=== PATIENT | female | born 1970 | race Caucasian/White ===

== ENCOUNTER → 2016-07-07 | Outpatient (CLI) | payer BC ==
--- NOTE | 2016-07-08 11:23 | MM ---
Reason for exam: screening (asymptomatic). Last mammogram was performed 1 year and 1 month ago. History: Patient history of other cancer. Took hormonal contraceptives for 2 years. Physical Findings: A clinical breast exam by your physician is recommended on an annual basis and results should be correlated with mammographic findings. MG Screening Mammo w CAD Bilateral CC and MLO view(s) were taken. Prior study comparison: June 19, 2015, bilateral MG screening mammo w CAD. May 07, 2014, bilateral MG screening mammo w CAD. The breast tissue is heterogeneously dense. This may lower the sensitivity of mammography. No significant changes when compared with prior studies. ASSESSMENT: Negative, BI-RAD 1 RECOMMENDATION: Routine screening mammogram of both breasts in 1 year.
== END | disposition home or self-care (01) ==
LOC: RADMAMWWP 07:08
PROVIDERS: ATTEND Obstetrics & Gynecology
DX: Z12.31 Encounter for screening mammogram for malignant neoplasm of breast (principal)

== ENCOUNTER → 2018-03-08 | Outpatient (CLI) | payer BC ==
[2018-03-08 07:44] LABS: INR 1.1 (<1.2); Prothrombin Time 10.5 sec (9.0-12.0)
== END ==
LOC: LABWHC1 07:01
PROVIDERS: ATTEND Family Medicine
DX: T14.8XXA Other injury of unspecified body region, initial encounter (principal)
CPT/HCPCS: 36415; 82180; 85610

== ENCOUNTER → 2018-03-09 | Outpatient (CLI) | payer BC ==
--- NOTE | 2018-03-10 13:55 | MM ---
Reason for exam: screening (asymptomatic). Last mammogram was performed 1 year and 8 months ago. History: Patient history of other cancer. Took hormonal contraceptives for 2 years. Physical Findings: A clinical breast exam by your physician is recommended on an annual basis and results should be correlated with mammographic findings. MG 3D Screening Mammo W/Cad Bilateral CC and MLO view(s) were taken. Prior study comparison: July 07, 2016, bilateral MG screening mammo w CAD. June 19, 2015, bilateral MG screening mammo w CAD. The breast tissue is heterogeneously dense. This may lower the sensitivity of mammography. No suspicious abnormality. No significant changes when compared with prior studies. ASSESSMENT: Negative, BI-RAD 1 RECOMMENDATION: Routine screening mammogram of both breasts in 1 year.
== END | disposition home or self-care (01) ==
LOC: RADMAMWWP 10:18
PROVIDERS: ATTEND Obstetrics & Gynecology
DX: Z12.31 Encounter for screening mammogram for malignant neoplasm of breast (principal)
CPT/HCPCS: 77063; 77067

== ENCOUNTER → 2019-04-09 | Outpatient (CLI) | payer BC ==
--- NOTE | 2019-04-09 10:20 | MM ---
Reason for exam: screening (asymptomatic). Last mammogram was performed 1 year and 1 month ago. History: Patient history of other cancer. Took hormonal contraceptives for 2 years. Physical Findings: A clinical breast exam by your physician is recommended on an annual basis and results should be correlated with mammographic findings. MG 3D Screening Mammo W/Cad Bilateral CC and MLO view(s) were taken. Prior study comparison: March 09, 2018, bilateral MG 3d screening mammo w/cad. July 07, 2016, bilateral MG screening mammo w CAD. The breast tissue is heterogeneously dense. This may lower the sensitivity of mammography. Benign appearing calcifications in the left breast. No suspicious abnormality. No significant changes when compared with prior studies. ASSESSMENT: Benign, BI-RAD 2 RECOMMENDATION: Routine screening mammogram of both breasts in 1 year.
== END | disposition home or self-care (01) ==
LOC: RADMAMWWP 07:09
PROVIDERS: ATTEND Obstetrics & Gynecology
DX: Z12.31 Encounter for screening mammogram for malignant neoplasm of breast (principal)
CPT/HCPCS: 77063; 77067

== ENCOUNTER → 2020-05-05 | Outpatient (CLI) | payer BC ==
[2020-05-05 09:11] LABS: Basophils % (A) 0 %; Eosinophils # (A) 0.3 k/uL (0-0.7); Eosinophils % (A) 4 %; HCT 38.9 % (34.0-46.0); HGB 13.2 gm/dL (11.4-16.0); Lymphocytes # (A) 2.1 k/uL (1.0-4.8); Lymphocytes % (A) 29 %; MCH 27.5 pg (25.0-35.0); MCHC 33.9 g/dL (31.0-37.0); MCV 81.2 fL (80.0-100.0); Mean Platelet Volume 7.6; Monocytes # (A) 0.4 k/uL (0-1.0); Monocytes % (A) 6 %; Neutrophils # (A) 4.5 k/uL (1.3-7.7); Neutrophils % (A) 60 %; Platelet Count 195 k/uL (150-450); RBC 4.79 m/uL (3.80-5.40); RDW 13.6 % (11.5-15.5); WBC 7.5 k/uL (3.8-10.6)
[2020-05-05 09:27] LABS: African American GFR (CKD) >90 (>60 ml/min/1.73 sqM); Anion Gap 6 mmol/L; Blood Urea Nitrogen 21 mg/dL (7-17); Carbon Dioxide 30 mmol/L (22-30); Chloride 103 mmol/L (98-107); Glucose 170 mg/dL (74-99); Non-African American GFR(CKD) >90 (>60 ml/min/1.73 sqM); Potassium 4.2 mmol/L (3.5-5.1); Sodium 139 mmol/L (137-145)
== END | disposition home or self-care (01) ==
LOC: LABPAT 07:54
PROVIDERS: ATTEND Obstetrics & Gynecology
DX: Z01.818 Encounter for other preprocedural examination (principal); D25.9 Leiomyoma of uterus, unspecified; E11.9 Type 2 diabetes mellitus without complications
CPT/HCPCS: 36415; 80051; 82565; 82947; 84520; 85025; 87086

== ENCOUNTER 2020-05-12 09:54 | Observation (INO) | payer BC ==
[2020-05-09 13:17] VITALS: BMI 37.1
[~2020-05-12 09:54] MED LIST: LACTATED RINGERS 1,000 ML IV SCH
[2020-05-12] MEDS ORDERED: LIDOCAINE 1% (10MG/ML) FOR IV START INTRADERMA ONE (10:37)
[2020-05-12] MEDS ORDERED: ONDANSETRON 4 MG/2 ML VIAL ONE (10:41)
[2020-05-12 10:42] LABS: Glucose,Whole Blood 140 mg/dL (75-99)
[2020-05-12] MEDS ORDERED: ONDANSETRON 4 MG/2 ML VIAL IVP ONE (10:55)
[2020-05-12] MEDS ORDERED: DEXAMETHASONE SOD PHOSPHATE 4 MG/ML 1 ML VIAL IVP ONE (10:56)
[2020-05-12] MEDS ORDERED: MIDAZOLAM 2 MG/2 ML VIAL ONE (12:55)
[2020-05-12] MEDS ORDERED: fentaNYL (PF) 50 MCG/ML 2 ML AMP ONE (12:55)
[2020-05-12] MEDS ORDERED: PROPOFOL 10 MG/ML 20 ML VIAL IV ONE (12:55)
[2020-05-12] MEDS ORDERED: VASOPRESSIN 20 UNIT/ML 1 ML VIAL SQ ONE (13:24)
[2020-05-12] MEDS ORDERED: BACITRACIN ZINC 500 UNIT/GM OINT 28.4 GM TUBE TOPICAL ONE ×2 (13:47→14:06)
[2020-05-12] MEDS ORDERED: LACTATED RINGERS 1,000 ML IV ONE (14:11)
[2020-05-12] MEDS ORDERED: IBUPROFEN 600 MG TAB PO PRN (14:23)
[2020-05-12] MEDS ORDERED: ONDANSETRON 4 MG/2 ML VIAL IVP PRN (14:23)
[2020-05-12] MEDS ORDERED: SIMETHICONE 80 MG CHEWABLE PO PRN (14:23)
[2020-05-12] MEDS ORDERED: diphenhydrAMINE 50 MG/ML 1 ML VIAL IVP PRN (14:23)
[2020-05-12] MEDS ORDERED: ZOLPIDEM 5 MG TAB PO PRN (14:23)
[2020-05-12] MEDS ORDERED: METOCLOPRAMIDE 5 MG/ML 2 ML VIAL IVP PRN (14:23)
--- NOTE | 2020-05-12 14:23 | P.OP ---
Date of Procedure: 05/12/20 Preoperative Diagnosis: Fibroid uterus with suspicious findings sonographically Postoperative Diagnosis: Same, normal-appearing ovaries bilaterally Procedure(s) Performed: Vaginal hysterectomy Anesthesia: spinal Surgeon: Rhonda Cruz Plumbing Drafter #1: Brooke Fox Estimated Blood Loss (ml): 50 IV fluids (ml): 600 Urine output (ml): 300 Pathology: other (Cervix and uterus) Condition: stable Disposition: PACU Operative Findings: Normal-appearing ovaries bilaterally. Description of Procedure: Patient is brought to the operating suite where a spinal is administered without difficulty. She's placed in the dorsal lithotomy position. The cervix, vagina, perineal bodies are all prepped and draped in the usual sterile fashion. Urine hCG is negative. Antibiotics are given. The appropriate timeout was performed to assure proper patient and procedural identification. The bladder is drained for approximately 300 mL of clear yellow urine. The weighted speculum was placed into the vagina. The anterior bladder blade is placed in the anterior lip of the cervix is grasped at 12:00 with a double-tooth tenaculum. The cervix is injected circumferentially with a dilute Pitressin solution. A scalpel is used to incise the mucosa circumferentially with a V positioning at 6:00. Sponge rolled finger is used to sweep the mucosa from the underlying fascial plane. The peritoneum is entered at 6:00 and suture tied with 2-0 Vicryl held with a hemostat. The large billed speculum is then placed into the peritoneal cavity. At all times care is taken to keep the bladder mucosa swept well from the operative field to avoid bladder and/or ureteral injury. The right uterosacral cardinal ligament is identified, clamped cut and suture ligated. It is held with a hemostat laterally. The same procedure is carried out contralaterally. Uterine vasculature is next identified, clamped cut and suture ligated. 2 additional pedicles are taken superior to the vessels. Peritoneum was then entered at 12:00 with a Metzenbaum scissor. The uterus is "walked out" posteriorly. Chele clamps are used across the final pedicles. The cervix and uterus are removed and sent to pathology for evaluation. The pedicles are tied with 0 Vicryl suture, flashed, and retied for excellent hemostasis. Both ovaries appear normal to inspection and were therefore left in situ per the patient's wishes. Hemostasis is excellent as all pedicles are reexamined. The speculum is changed to the shallow billed speculum and the 2-0 Vicryl is brought around in a pursestring fashion to close the peritoneum. The uterosacral cardinal ligaments are now brought across to incorporate the opposite ligament as well as vaginal mucosa. 3 additional [id number]-mv-htlyb sutures are placed in the vaginal mucosa for final closure. The Harris catheter is placed in the urine is noted to be clear. The vagina is packed with a 1 inch iodophor gauze. Rectal examination reveals no rectal defects. All sponge nee dle and enhancement counts are correct. Patient is brought back to the recovery room in very good condition with stable vital signs including a blood pressure 115/51, pulse 78, 95% O2 saturation.
[2020-05-12] MEDS ORDERED: HYDROmorphone 0.5 MG/0.5 ML SYRINGE IVP PRN (15:19)
[2020-05-12] MEDS: KETOROLAC 15 MG/ML 1 ML VIAL IVP PRN ×2 (15:24→22:06)
[2020-05-12 15:36] LABS: Glucose,Whole Blood 159 mg/dL (75-99)
[2020-05-12] MEDS ORDERED: LACTATED RINGERS 1,000 ML IV SCH (22:30)
[2020-05-13] MEDS: KETOROLAC 15 MG/ML 1 ML VIAL IVP PRN (05:31)
--- NOTE | 2020-05-13 06:51 | P.DS ---
Providers Date of admission: 05/12/20 23:41 Expected date of discharge: 05/13/20 Attending physician: Rhonda Cruz Primary care physician: Stated None Hospital Course: This is a 49-year-old white female who presented with a fibroid uterus and sonographic findings that were concerning for potential sarcomatous changes. After consultation in the office, we elected to proceed with vaginal hysterectomy. Please see dictated history and physical for details. Patient underwent vaginal hysterectomy under my care with an estimated blood loss of 50 mL's. She did well intraoperatively, the ovaries appeared normal to inspection and were left in situ. Harris catheter and vaginal packing were placed. Please see dictated operative note for details. This morning the patient is doing well. Harris catheter and vaginal packing had been removed. She has not yet voided. Vital signs are stable and she is afebrile. She complains of no pain. Activity is being advanced, and diet will be advanced this morning as well. Chest is clear. Patient judged to be in good condition for discharge home later today. Patient will follow-up with me in the office in 2 weeks. She is reminded no intercourse, no heavy lifting, no tampons or douching. She will call with any fevers shakes or chills, foul smelling or copious lochia, with the passage of large blood clots, with any pain not alleviated by [id number] products, or indeed with any concerns. Port is pending at the time of this dictation and we will review this in the office. She will use [id number] Advil or Aleve, or Motrin as needed for pain. Assessment: Doing well postoperative day #1 Patient Condition at Discharge: Good Plan - Discharge Summary Discharge Rx Participant: No New Discharge Prescriptions: No Action lisinopriL 40 mg PO HS metFORMIN HCL [Glucophage] 500 mg PO TID hydroCHLOROthiazide 25 mg PO HS Discharge Medication List hydroCHLOROthiazide 25 mg PO HS 05/09/20 [History] lisinopriL 40 mg PO HS 05/09/20 [History] metFORMIN HCL [Glucophage] 500 mg PO TID 05/09/20 [History] Follow up Appointment(s)/Referral(s): Rhonda Cruz MD [STAFF PHYSICIAN] - 2 Weeks
--- NOTE | 2020-05-13 07:12 | P.PN ---
Progress Note - Text Progress Note Date: 05/13/20 Postoperative day 1 status post vaginal hysterectomy, and intrathecal morphine given for postoperative analgesia, patient doing well, there is no anesthesia related complications, Patient had no headache, vital signs stable , Assessment and plan= postop day 1 , doing well there is no anesthesia related complication.
[2020-05-13 08:10] VITALS: BP 106/54; PULSE 78; RESP 18; TEMP 97.7
== END 2020-05-13 12:22 | disposition home or self-care (01) ==
LOC: OR 09:54 → 4FBP 14:20 → OR 23:26 → 4FBP 23:26 → OR 23:41 → 4FBP 23:41
PROVIDERS: ADMIT Obstetrics & Gynecology; ATTEND Obstetrics & Gynecology
DX: D25.1 Intramural leiomyoma of uterus (principal); N80.0 Endometriosis of uterus; I10 Essential (primary) hypertension; E11.9 Type 2 diabetes mellitus without complications; Z79.890 Hormone replacement therapy; Z79.84 Long term (current) use of oral hypoglycemic drugs; Z79.899 Other long term (current) drug therapy; Z88.5 Allergy status to narcotic agent; Z85.828 Personal history of other malignant neoplasm of skin; Z96.29 Presence of other otological and audiological implants; Z90.79 Acquired absence of other genital organ(s); Z86.010 Personal history of colon polyps; D50.8 Other iron deficiency anemias; Z87.59 Personal history of other complications of pregnancy, childbirth and the puerperium; Z98.890 Other specified postprocedural states; Z82.49 Family history of ischemic heart disease and other diseases of the circulatory system; Z83.3 Family history of diabetes mellitus; Z83.49 Family history of other endocrine, nutritional and metabolic diseases; Z82.69 Family history of other diseases of the musculoskeletal system and connective tissue; Z80.41 Family history of malignant neoplasm of ovary
CPT/HCPCS: 81025; 86900; 86901; 86850; 88307; 58260; G0378 ×2; J1100; J0690; J2405; J1885 ×2; J1170

== ENCOUNTER → 2020-06-26 | Outpatient (CLI) | payer BC ==
--- NOTE | 2020-06-30 08:17 | MM ---
Reason for exam: screening (asymptomatic). Last mammogram was performed 1 year and 3 months ago. History: Patient is postmenopausal and history of other cancer. Family history of breast cancer in cousin. Took hormonal contraceptives for 2 years. Physical Findings: A clinical breast exam by your physician is recommended on an annual basis and results should be correlated with mammographic findings. MG 3D Screening Mammo W/Cad Bilateral CC and MLO view(s) were taken. Prior study comparison: April 09, 2019, bilateral MG 3d screening mammo w/cad. March 09, 2018, bilateral MG 3d screening mammo w/cad. The breast tissue is heterogeneously dense. This may lower the sensitivity of mammography. Benign oil cyst calcifications. No significant changes when compared with prior studies. ASSESSMENT: Negative, BI-RAD 1 RECOMMENDATION: Routine screening mammogram of both breasts in 1 year.
== END | disposition home or self-care (01) ==
LOC: RADMAMWWP 07:02
PROVIDERS: ATTEND Obstetrics & Gynecology
DX: Z12.31 Encounter for screening mammogram for malignant neoplasm of breast (principal)
CPT/HCPCS: 77063; 77067

== ENCOUNTER → 2021-07-28 | Outpatient (CLI) | payer BC ==
--- NOTE | 2021-07-30 12:04 | MM ---
Reason for exam: screening (asymptomatic). Last mammogram was performed 1 year and 1 month ago. History: Patient is postmenopausal and history of other cancer. Family history of breast cancer in paternal cousin. Took hormonal contraceptives for 2 years. Physical Findings: A clinical breast exam by your physician is recommended on an annual basis and results should be correlated with mammographic findings. MG 3D Screening Mammo W/Cad Bilateral CC and MLO view(s) were taken. Prior study comparison: June 26, 2020, bilateral MG 3d screening mammo w/cad. April 09, 2019, bilateral MG 3d screening mammo w/cad. The breast tissue is heterogeneously dense. This may lower the sensitivity of mammography. Focal asymmetry inner central left breast zone B/C. ASSESSMENT: Incomplete: need additional imaging evaluation, BI-RAD 0 RECOMMENDATION: Special view mammogram of the left breast. If lesion persists on supplemental views, image directed ultrasound is recommended. [facility] will attempt to contact patient to return for supplemental views and ultrasound if indicated.
== END | disposition home or self-care (01) ==
LOC: RADMAMWWP 09:01
PROVIDERS: ATTEND Obstetrics & Gynecology
DX: Z12.31 Encounter for screening mammogram for malignant neoplasm of breast (principal)
CPT/HCPCS: 77063; 77067

== ENCOUNTER → 2021-08-19 | Outpatient (CLI) | payer BC ==
--- NOTE | 2021-08-19 09:50 | MM ---
Reason for exam: additional evaluation requested from abnormal screening. Last mammogram was performed 1 month ago. History: Patient is postmenopausal and has history of other cancer at age 24. Family history of breast cancer in paternal cousin. Took hormonal contraceptives for 2 years. Physical Findings: A clinical breast exam by your physician is recommended on an annual basis and results should be correlated with mammographic findings. MG 3D Work Up W/Cad LT Spot compression CC, spot compression MLO, and ML view(s) were taken of the left breast. Prior study comparison: July 28, 2021, bilateral MG 3d screening mammo w/cad. June 26, 2020, bilateral MG 3d screening mammo w/cad. The breast tissue is heterogeneously dense. This may lower the sensitivity of mammography. There is no discrete abnormality including area of concern. No significant new findings when compared with previous films. These results were verbally communicated with the patient and result sheet given to the patient on 08/19/21. ASSESSMENT: Negative, BI-RAD 1 RECOMMENDATION: Return to routine screening mammogram schedule for both breasts.
== END | disposition home or self-care (01) ==
LOC: RADMAMWWP 08:57
PROVIDERS: ATTEND Obstetrics & Gynecology
DX: R92.8 Other abnormal and inconclusive findings on diagnostic imaging of breast (principal)
CPT/HCPCS: 77061; 77065

== ENCOUNTER → 2024-02-21 | Outpatient (CLI) | payer BC ==
--- NOTE | 2024-02-22 23:08 | MM ---
Reason for Exam: Screening (asymptomatic). Last mammogram was performed 1 year(s) and 6 month(s) ago. Patient History: Menarche at age 9. First Full-Term at age 28. Hysterectomy at age 49. Postmenopausal. Other cancer, age 24. Patient used Hormonal Contraceptives for 2 years. Paternal cousin had breast cancer, age 45. Risk Values: Chelly 5 year model risk: 1.4%. NCI Lifetime model risk: 10.1%. Prior Study Comparison: 07/28/2021 Bilateral Screening Mammogram, [facility]. 08/19/2021 Left Diagnostic Mammogram, [facility]. 08/10/2022 Bilateral MG 3D screening mammo w/cad, [facility]. Tissue Density: The breasts are heterogeneously dense, which may obscure small masses. Findings: Analyzed By CAD. The pattern is symmetrical. There is a grouping of small punctate calcifications lower outer right posterior breast approximately 8:00 position appear to be new. Additional evaluation is recommended No suspicious groups of microcalcifications, spiculated or lobular masses, architectural distortion or other secondary signs of malignancy are mammographically apparent. Overall Assessment: Incomplete: need additional imaging evaluation, BI-RAD 0 Management: Diagnostic Mammogram of the right breast. A negative mammogram report should not preclude additional follow up of suspicious palpable abnormalities. Patient should continue monthly self breast exam. A clinical breast exam by your physician is recommended on an annual basis and results should be correlated with mammographic findings. Note on Chelly scores and lifetime risk: 1. A Chelly score greater than 3% is considered moderate risk. If this is the case, consider specialist referral to assess eligibility for a risk reducing agent. 2. If overall lifetime risk for the development of breast cancer is 20% or higher, the patient may qualify for future screening with alternating mammogram and breast MRI. [facility], , 02/22/2024 11:05 PM. Electronically signed and approved by: Paul Ruiz D.O. Radiologis
== END | disposition home or self-care (01) ==
LOC: RADMAMWWP 07:12
PROVIDERS: ATTEND Obstetrics & Gynecology
DX: Z12.31 Encounter for screening mammogram for malignant neoplasm of breast
CPT/HCPCS: 77063; 77067

== ENCOUNTER → 2024-03-06 | Outpatient (CLI) | payer BC ==
--- NOTE | 2024-03-06 11:31 | MM ---
Reason for Exam: Additional evaluation requested from abnormal screening. Last screening mammogram was performed less than 1 month ago. Patient History: Menarche at age 9. First Full-Term at age 28. Hysterectomy at age 49. Postmenopausal. Other cancer, age 24. Patient used Hormonal Contraceptives for 2 years. Paternal cousin had breast cancer, age 45. Risk Values: Chelly 5 year model risk: 1.4%. NCI Lifetime model risk: 10.1%. Prior Study Comparison: 06/26/2020 Bilateral Screening Mammogram, [facility]. 07/28/2021 Bilateral Screening Mammogram, [facility]. 08/19/2021 Left Diagnostic Mammogram, [facility]. 08/10/2022 Bilateral MG 3D screening mammo w/cad, [facility]. 02/21/2024 Bilateral MG 3D screening mammo w/cad, [facility]. Tissue Density: Right: The breasts are heterogeneously dense, which may obscure small masses. Findings: Analyzed By CAD. There are 3 clustered calcifications lower outer right breast which do not appear suspicious at this time. Six-month follow-up mammography is advised which is to include spot magnification compression views. Overall Assessment: Probably benign, BI-RAD 3 Management: Diagnostic Mammogram of the right breast in 6 months. . Results were given to the patient verbally at the time of exam. Patient should continue monthly self-breast exams. A clinical breast exam by your physician is recommended on an annual basis. This exam should not preclude additional follow-up of suspicious palpable abnormalities. Note on Chelly scores and lifetime risk: 1. A Chelly score greater than 3% is considered moderate risk. If this is the case, consider specialist referral to assess eligibility for a risk reducing agent. 2. If overall lifetime risk for the development of breast cancer is 20% or higher, the patient may qualify for future screening with alternating mammogram and breast MRI. [facility], , 03/06/2024 10:57 AM. Electronically signed and approved by: Zach Cooper M.D. Radiologis
== END | disposition home or self-care (01) ==
LOC: RADMAMWWP 10:12
PROVIDERS: ATTEND Obstetrics & Gynecology
DX: R92.8 Other abnormal and inconclusive findings on diagnostic imaging of breast
CPT/HCPCS: 77061; 77065

== ENCOUNTER → 2024-09-04 | Outpatient (CLI) | payer BC ==
--- NOTE | 2024-09-04 12:57 | MM ---
Reason for Exam: Follow-up at short interval from prior study. Last screening mammogram was performed 7 month(s) ago. Patient History: Menarche at age 9. First Full-Term at age 28. Hysterectomy at age 49. Postmenopausal. Other cancer, age 24. Patient used Hormonal Contraceptives for 2 years. Paternal cousin had breast cancer, age 45. Risk Values: Chelly 5 year model risk: 1.4%. NCI Lifetime model risk: 9.9%. Prior Study Comparison: 07/28/2021 Bilateral Screening Mammogram, [facility]. 08/10/2022 Bilateral MG 3D screening mammo w/cad, [facility]. 02/21/2024 Bilateral MG 3D screening mammo w/cad, [facility]. 03/06/2024 Right MG 3D work up w/cad RT, [facility]. Tissue Density: Right: The breasts are heterogeneously dense, which may obscure small masses. Findings: Analyzed By CAD. 3 focal calcifications are redemonstrated the lower outer right breast unchanged from prior study. No suspicious clusters are seen at this time. Overall Assessment: Benign, BI-RAD 2 Management: Screening Mammogram of both breasts in 6 months. . Results were given to the patient verbally at the time of exam. Patient should continue monthly self-breast exams. A clinical breast exam by your physician is recommended on an annual basis. This exam should not preclude additional follow-up of suspicious palpable abnormalities. Note on Chelly scores and lifetime risk: 1. A Chelly score greater than 3% is considered moderate risk. If this is the case, consider specialist referral to assess eligibility for a risk reducing agent. 2. If overall lifetime risk for the development of breast cancer is 20% or higher, the patient may qualify for future screening with alternating mammogram and breast MRI. [facility], , 09/04/2024 11:59 AM. Electronically signed and approved by: Zach Cooper M.D. Radiologis
== END | disposition home or self-care (01) ==
LOC: RADMAMWWP 11:33
PROVIDERS: ATTEND Obstetrics & Gynecology
DX: R92.8 Other abnormal and inconclusive findings on diagnostic imaging of breast (principal); R92.331 Mammographic heterogeneous density, right breast; R92.1 Mammographic calcification found on diagnostic imaging of breast; Z78.0 Asymptomatic menopausal state; Z80.3 Family history of malignant neoplasm of breast; Z92.0 Personal history of contraception
CPT/HCPCS: 77061; 77065